=== PATIENT | male | born 1945 | race Caucasian/White ===

== ENCOUNTER 2016-08-10 13:42 | Day surgery (SDC) | payer MEDICARE, OTHER ==
--- NOTE | ~2016-08-10 | OP ---
Record Of Operation [facility] [address] [place]. [address] NAME: JONEL MCCOY : 41 STATUS : PRE [facility] [place] PAT#: [id number] AGE: 71 ADM/REG DATE : MR#: [id number] REPORT SERV DATE: 08/11/16 DICTATED BY: ALEXANDREA CONROY JR. 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 POSTOPERATIVE DIAGNOSIS: Pathology pending. NAME OF OPERATION: Diagnostic therapeutic bronchoscopy, endobronchial ultrasound with multiple fine-needle aspirations, winifred stations 4, 7, 11R. SURGEON: Alexandrea Conroy M.D. RESIDENT SURGEON: Saad Johnson MD ANESTHESIA: [facility]. FINDINGS: Patient was noted to have no endobronchial lesions or abnormal anatomy. Mucous secretions were evacuated. On endobronchial ultrasound, he had a very benign-appearing lymph nodes in the hilar, subcarinal, and right paratracheal regions. Multiple fine-needle aspirations of all 3 regions demonstrated normal lymphocytes with no strong evidence for metastatic cancer. Additional material sent for cell block. Final pathology is pending. DETAILS OF OPERATION: After adequate general anesthesia, the patient was intubated with an LMA. Diagnostic and therapeutic bronchoscopy was performed noting no endobronchial lesions. Anatomy was normal. Mucous secretions were evacuated. Endobronchial ultrasound was then performed highlighting the three different winifred regions. Multiple fine-needle aspirations were performed in all three regions. Touch preps demonstrated normal lymphocytes with good sample material. There was no evidence of definitive metastatic cancer. Additional material sent for cell block. Adequate hemostasis was obtained. The procedure was terminated at this point. The patient tolerated the procedure well and taken back to recovery room in stable condition. RASHIDA/DEEP Alexandrea Conroy Jr., M.D. / [id number] CC: Rory Gilbert MD
[~2016-08-10 13:42] MED LIST: AMARYL4 PO; AMB5 PO; ELIQUIS 5 MG TAB5 MG PO; GLUCOPHAGE1000 MG PO; HYDROCHLOROT50 MG PO; JANUVIA100 MG PO; LEXAPRO20 PO; PREVALITE4 G1 PO; PRIN10 PO; TOPXL25 PO; ZOCOR20 PO
[2016-08-10 14:15] LABS: HEMATOCRIT 40.1 % (40.0-51.0); HEMOGLOBIN 13.9 g/dL (13.6-17.8)
[2016-08-10 14:29] LABS: BUN (BLOOD UREA NITROGEN) 17 MG/DL (6-23); CALCIUM, SERUM 9.2 MG/DL (8.5-10.4); CHLORIDE, SERUM 104 MMOL/L (96-112); CO2 (CARBON DIOXIDE) 28 MMOL/L (24-34); CREATININE 0.86 MG/DL (0.70-1.30); GFR AFRICAN AMERICAN 100 ML/MIN (>=60); GFR NON AFRICAN AMERICAN 86 ML/MIN (>=60); GLUCOSE, SERUM 134 MG/DL (60-99); POTASSIUM, SERUM 3.7 MMOL/L (3.5-5.3); SODIUM, SERUM 141 MMOL/L (135-148)
== END 2016-08-10 19:12 | disposition home or self-care (01) ==
LOC: DMU 13:42
PROVIDERS: Anesthesiology; Thoracic Surgery (Cardiothoracic Vascular Surgery)
PROC: 07B74ZX Excision of Thorax Lymphatic, Percutaneous Endoscopic Approach, Diagnostic (ICD-10-PCS; principal; 2016-08-10 15:30)
DX: C34.31 Malignant neoplasm of lower lobe, right bronchus or lung (principal); I25.10 Atherosclerotic heart disease of native coronary artery without angina pectoris; E11.9 Type 2 diabetes mellitus without complications; I10 Essential (primary) hypertension; F01.50 Vascular dementia, unspecified severity, without behavioral disturbance, psychotic disturbance, mood disturbance, and anxiety; J44.9 Chronic obstructive pulmonary disease, unspecified; I48.0 Paroxysmal atrial fibrillation; G47.33 Obstructive sleep apnea (adult) (pediatric); E78.00 Pure hypercholesterolemia, unspecified; Z86.73 Personal history of transient ischemic attack (TIA), and cerebral infarction without residual deficits; Z82.49 Family history of ischemic heart disease and other diseases of the circulatory system; Z80.1 Family history of malignant neoplasm of trachea, bronchus and lung; Z87.891 Personal history of nicotine dependence; Z79.899 Other long term (current) drug therapy; Z95.5 Presence of coronary angioplasty implant and graft; Z90.49 Acquired absence of other specified parts of digestive tract; Z98.890 Other specified postprocedural states
CPT/HCPCS: 80048; 82962; 85014; 85018; 88172; 88173; 88305; 93005; A9270-GY; J3010

== ENCOUNTER 2016-08-16 07:12 | Inpatient (IN) | payer MEDICARE, OTHER ==
[2016-08-13 14:10] LABS: BASOPHILS 0.3 %; BASOPHILS ABSOLUTE 0.02 10/3/uL (0.0-0.16); EOSINOPHILS ABSOLUTE 0.06 10/3/uL (0.0-0.53); HEMATOCRIT 38.4 % (40.0-51.0); HEMOGLOBIN 13.5 g/dL (13.6-17.8); IMMATURE GRANULOCYTES 0.2 %; IMMATURE GRANULOCYTES ABSOLUTE 0.01 10/3/uL (0.0-0.11); LYMPHOCYTES 27.1 %; LYMPHOCYTES ABSOLUTE 1.56 10/3/uL (0.67-4.30); MEAN CORPUS HGB CONC 35.2 g/dL (32.0-36.0); MEAN CORPUSCULAR HEMOGLOB 32.4 pg (26.0-34.0); MEAN CORPUSCULAR VOLUME 92.1 fL (80-100); MEAN PLATELET VOLUME 10.4 fL (9.2-13.0); MONOCYTES 8.3 %; MONOCYTES ABSOLUTE 0.48 10/3/uL (0.21-1.20); NEUTROPHILS 63.1 %; NEUTROPHILS ABSOLUTE 3.62 10/3/uL (2.02-8.40); PLATELET COUNT 185 10/3/uL (150-400); RBC DISTRIBUTION WIDTH 13.8 % (12.0-16.0); RED CELL COUNT 4.17 10/6/uL (4.7-6.1); WHITE BLOOD CELLS 5.8 10/3/uL (4.5-10.5)
[2016-08-13 14:12] LABS: MANUAL DIFF NO %
[2016-08-13 14:19] LABS: INTERNATIONAL NORMAL RATI 1.2 UNITS (-); PROTIME (NOT ORD) 14.8 SEC (12.0-14.5)
[2016-08-13 14:20] LABS: ASCORBIC ACID (UR NOT ORDER) NEG (NEG); BILIRUBIN, URINE NEGATIVE (NEG); KETONE, URINE NEGATIVE (NEG); LEUKOCYTE ESTERASE(NOT OR NEG (NEG); WBC (NOT ORDERED) (RFLEX) 1 (0-5)
[2016-08-13 14:25] LABS: A/G RATIO 1.2 (0.7-1.9); ALBUMIN 3.8 G/DL (3.5-5.0); ALKALINE PHOSPHATASE 41 U/L (45-117); BUN (BLOOD UREA NITROGEN) 16 MG/DL (6-23); CALCIUM, SERUM 9.1 MG/DL (8.5-10.4); CHLORIDE, SERUM 104 MMOL/L (96-112); CO2 (CARBON DIOXIDE) 26 MMOL/L (24-34); CREATININE 0.89 MG/DL (0.70-1.30); GFR AFRICAN AMERICAN 98 ML/MIN (>=60); GFR NON AFRICAN AMERICAN 85 ML/MIN (>=60); GLOBULIN 3.3 G/DL (2.5-4.1); POTASSIUM, SERUM 3.7 MMOL/L (3.5-5.3); SGOT(AST) 40 U/L (5-40); SGPT(ALT) 60 U/L (5-65); SODIUM, SERUM 142 MMOL/L (135-148); TOTAL BILIRUBIN 0.9 MG/DL (0-1.2); TOTAL PROTEIN 7.1 G/DL (6.0-8.5)
[2016-08-13 14:27] LABS: GLUCOSE, SERUM 104 MG/DL (60-99)
--- NOTE | ~2016-08-16 | OP ---
Record Of Operation [facility] [address] [place]. [address] NAME: JONEL MCCOY : 41 STATUS : ADM IN PAT#: [id number] AGE: 71 ADM/REG DATE : 08/16/16 MR#: [id number] REPORT SERV DATE: 08/17/16 DICTATED BY: ALEXANDREA CONROY JR. DATE: 08/16/16 REPORT STATUS : Draft TRANSCRIBED BY: MODL DATE: 08/16/16 DATE OF PROCEDURE: 08/16/2016 PREOPERATIVE DIAGNOSES: Chronic obstructive pulmonary disease, right lower lobe mixed non- small cell and small cell lung cancer, mediastinal lymphadenopathy, [id number] diabetes mellitus type 2, history of previous CVA, hypertension, and chronic atrial fibrillation. POSTOPERATIVE DIAGNOSIS: Chronic obstructive pulmonary disease, right lower lobe mixed non- small cell and small cell lung cancer, mediastinal lymphadenopathy, iju-bkmirpq-bqvlgezbl diabetes mellitus type 2, history of previous CVA, hypertension, and chronic atrial fibrillation. NAME OF OPERATION: Bronchoscopy, right thoracoscopy with right lower lobectomy, complete mediastinal node dissection, winifred stations 7, 9, 11R, and intercostal nerve block. SURGEON: Alexandrea Conroy M.D. RESIDENT SURGEON: Dr. Bridger Whitehead. POWER LINEMAN: [facility]. ANESTHESIA: General endotracheal. FINDINGS: The patient was noted to have a tumor contained within the superior segment of the right lower lobe. There was no other significant findings other than some hematoma around the distal esophagus which was unusual. There were significant amount of nodes in the subcarinal and hilar regions. We could not find any lymph nodes of any significance in the right paratracheal area. The tumor was well contained within the superior segment of the right lower lobe. Margins were grossly negative. Final pathology is pending. DETAILS OF OPERATION: After adequate general anesthesia, the patient was intubated. A bronchoscopy was performed noting no endobronchial lesions. Mucous secretions were evacuated. Left-sided double-lumen endotracheal tube was then placed. The patient was then positioned in the left lateral decubitus position. The right chest was prepped and draped in a routine sterile fashion. A small incision was made overlying the lower intercostal space. A separate anterior trocar incision was also made. Through these two incision sites, the chest was explored. There was no evidence of metastatic disease. There is no pericardial effusion. Tumor was identified. Decision was made to go ahead with the right lower lobectomy. The inferior pulmonary ligament was then divided. Two pulmonary veins were identified dissecting out the inferior pulmonary vein. The inferior pulmonary vein was then divided with a vascular stapler. The bronchus was dissected out and transected with the ALTAGRACIA stapler. The fissure was divided with multiple firings of ALTAGRACIA stapler with tissue reinforcements. This includes the pulmonary artery. The specimen was placed in a specimen bag and brought through the anterior trocar site. Nodes from the subcarinal and inferior pulmonary ligament and hilar regions were removed. The chest was thoroughly irrigated with Record Of Operation [facility] [id number] [place]. [address] NAME: JONEL MCCOY : 41 STATUS : ADM IN [facility]#: [id number] AGE: 71 ADM/REG DATE : 08/16/16 MR#: [id number] REPORT SERV DATE: 08/17/16 DICTATED BY: ALEXANDREA CONROY JR. DATE: 08/16/16 REPORT STATUS : Draft TRANSCRIBED BY: DEEP DATE: 08/16/16 sterile water. Adequate hemostasis was obtained. An intercostal nerve block was performed. A 20-[place] chest tube was placed. The lung was reinflated. The trocar sites were closed with running Vicryl sutures. The skin was closed with running monofilament suture. A Dermabond dressing was applied and the procedure was terminated at this point. The patient tolerated the procedure well and taken back to the recovery room in stable condition. RASHIDA/DEEP Alexandrea Conroy Jr., M.D. / [id number] CC: Tien Cook Jr., MD
[2016-08-17 06:34] LABS: BASOPHILS 0.1 %; BASOPHILS ABSOLUTE 0.01 10/3/uL (0.0-0.16); EOSINOPHILS 0 %; HEMOGLOBIN 12.9 g/dL (13.6-17.8); IMMATURE GRANULOCYTES 0.2 %; IMMATURE GRANULOCYTES ABSOLUTE 0.02 10/3/uL (0.0-0.11); LYMPHOCYTES 12.3 %; LYMPHOCYTES ABSOLUTE 1.15 10/3/uL (0.67-4.30); MEAN CORPUS HGB CONC 33.9 g/dL (32.0-36.0); MEAN CORPUSCULAR HEMOGLOB 31.6 pg (26.0-34.0); MEAN CORPUSCULAR VOLUME 93.1 fL (80-100); MEAN PLATELET VOLUME 10.7 fL (9.2-13.0); MONOCYTES 7.6 %; MONOCYTES ABSOLUTE 0.71 10/3/uL (0.21-1.20); NEUTROPHILS 79.8 %; NEUTROPHILS ABSOLUTE 7.43 10/3/uL (2.02-8.40); PLATELET COUNT 201 10/3/uL (150-400); RED CELL COUNT 4.08 10/6/uL (4.7-6.1)
[2016-08-17 06:36] LABS: MANUAL DIFF NO %; WHITE BLOOD CELLS 9.3 10/3/uL (4.5-10.5)
[2016-08-17 06:45] LABS: CALCIUM, SERUM 8.3 MG/DL (8.5-10.4); CHLORIDE, SERUM 100 MMOL/L (96-112); CO2 (CARBON DIOXIDE) 26 MMOL/L (24-34); CREATININE 0.93 MG/DL (0.70-1.30); GFR AFRICAN AMERICAN 94 ML/MIN (>=60); GFR NON AFRICAN AMERICAN 81 ML/MIN (>=60); POTASSIUM, SERUM 3.6 MMOL/L (3.5-5.3); SODIUM, SERUM 137 MMOL/L (135-148)
[2016-08-17 06:46] LABS: BUN (BLOOD UREA NITROGEN) 11 MG/DL (6-23); GLUCOSE, SERUM 191 MG/DL (60-99)
[2016-08-17] MEDS ORDERED: PCET PO (10:28)
== END 2016-08-17 15:29 | disposition home or self-care (01) | DRG 165 ==
LOC: SDC/OF 07:12 → 5NO 15:06
PROVIDERS: Thoracic Surgery (Cardiothoracic Vascular Surgery)
PROC: 3E0T3BZ Introduction of Anesthetic Agent into Peripheral Nerves and Plexi, Percutaneous Approach (ICD-10-PCS; principal; 2016-08-16 09:15)
PROC: 0BTF4ZZ Resection of Right Lower Lung Lobe, Percutaneous Endoscopic Approach (ICD-10-PCS; principal; 2016-08-16 09:15)
PROC: 07B74ZZ Excision of Thorax Lymphatic, Percutaneous Endoscopic Approach (ICD-10-PCS; principal; 2016-08-16 09:15)
PROC: 0BJ08ZZ Inspection of Tracheobronchial Tree, Via Natural or Artificial Opening Endoscopic (ICD-10-PCS; principal; 2016-08-16 09:15)
DX: C34.31 Malignant neoplasm of lower lobe, right bronchus or lung (principal); I48.2 Chronic atrial fibrillation; J44.9 Chronic obstructive pulmonary disease, unspecified; E11.9 Type 2 diabetes mellitus without complications; I10 Essential (primary) hypertension; R59.1 Generalized enlarged lymph nodes; Z87.891 Personal history of nicotine dependence; Z95.5 Presence of coronary angioplasty implant and graft; Z86.73 Personal history of transient ischemic attack (TIA), and cerebral infarction without residual deficits; G47.33 Obstructive sleep apnea (adult) (pediatric)
CPT/HCPCS: 36415; 71020; 80048; 80053; 81001; 82962; 83036; 85025; 85610; 86850; 86900; 86901; 87641; 88305; 88307; 88309; 88313; 88341; 88342; 88360; 93005; 94640; A9270-GY; J0690; J2250; J2300; J2405; J2710; J2795; J3010